=== PATIENT | male | born 1990 | race Two or more races ===

== ENCOUNTER 2025-07-25 22:20 | Emergency (ER) | payer OTHER ==
[~2025-07-25] VITALS: Ht 167.6 cm; Wt 99.8 kg
[2025-07-25 22:31] VITALS: TEMP 98.7
[2025-07-25 22:33] VITALS: BP 162/113; O2SAT 98
[2025-07-25] MEDS ORDERED: HYDROCODONE/APAP 5/325MG TABLET ONE (22:48)
[2025-07-25] MEDS: HYDROCODONE/APAP 5/325MG TABLET PO ONE (22:50)
[2025-07-25] MEDS ORDERED: HYDR-3972 PO (23:49)
== END 2025-07-26 00:45 | disposition home or self-care (01) ==
LOC: ER 22:22
DX: S92.352A Displaced fracture of fifth metatarsal bone, left foot, initial encounter for closed fracture (principal); S23.3XXA Sprain of ligaments of thoracic spine, initial encounter; S09.90XA Unspecified injury of head, initial encounter; V49.40XA Driver injured in collision with unspecified motor vehicles in traffic accident, initial encounter; Y93.89 Activity, other specified; Y92.410 Unspecified street and highway as the place of occurrence of the external cause; Y99.8 Other external cause status
CPT/HCPCS: 70450-TC; 72128-TC; 73630-TC